=== PATIENT | female | born 1995 | race Caucasian/White ===

== ENCOUNTER 2019-03-05 11:10 | Outpatient (CLI) ==
[2014-04-08 11:30] VITALS: BMI 21.2
== END 2019-03-05 11:11 | disposition home or self-care (01) ==
LOC: LAB 11:10
PROVIDERS: ATTEND Physician Assistant
DX: R53.83 Other fatigue (principal)
CPT/HCPCS: 36415; 80053; 81001; 82306; 82607; 84443; 84702; 85025

== ENCOUNTER 2019-03-17 10:50 | Emergency (ER) ==
[2019-03-17 10:56] VITALS: BP 123/81; TEMP 100.2; BMI 26.6
--- NOTE | 2019-03-17 12:14 | ED.PDOC ---
General ED Provider: Dr. LILLIAN LAND Chief Complaint: Chest Pain Stated Complaint: midsternal chest pain with chest tightness since last night at 1830 hours. Patient stated feels it became difficulty to breath with the chest pain, "like an anxiety attack". Patient recent illness or injury to chest. Time Seen by Physician: 12:15 Mode of Arrival: Walk-In Information Source: Patient Exam Limitations: No limitations Primary Care Provider: DOYLE CHENEY Nursing and Triage Documentation Reviewed and Agree: Yes Does patient meet sepsis criteria?: No If yes, has appropriate treatment been initiated?: No System Inflammatory Response Syndrome: Not Applicable Sepsis Protocol: For patient's 13 years and over: Temp is 96.8 and below OR 101 and greater Pulse >90 BPM Resp >20/minute Acutely Altered Mental Status Are patient's symptoms suggestive of a new infection, such as: -Pneumonia -Skin, Soft Tissue -Endocarditis -UTI -Bone, Joint Infection -Implantable Device -Acute Abdominal Infection -Wound Infection -Meningitis -Blood Stream Catheter Infection -Unknown Review of Systems - Review Of Systems Constitutional: Reports: No symptoms Eyes: Reports: No symptoms Ears, Nose, Mouth, Throat: Reports: No symptoms Respiratory: Reports: No symptoms Cardiac: Reports: No symptoms GI: Reports: No symptoms : Reports: No symptoms Musculoskeletal: Reports: No symptoms Skin: Reports: No symptoms Neurological: Reports: No symptoms, Other (anxioius at times) Endocrine: Reports: No symptoms Hematologic/Lymphatic: Reports: No symptoms All Other Systems: Reviewed and Negative Past Medical History - Past Medical History Previously Healthy: Yes Endocrine: Reports: None Cardiovascular: Reports: None Respiratory: Reports: None Hematological: Reports: None Gastrointestinal: Reports: None Genitourinary: Reports: None Neuro/Psych: Reports: None Musculoskeletal: Reports: None Cancer: Reports: None Last Menstrual Period: none - Surgical History General Surgical History: Reports: None - Family History Family History: Reports: None - Social History Smoking Status: Never smoker Hx Substance Use: No Alcohol Screening: Occasionally - Immunizations Tetanus Shot up to Date: Yes Physical Exam - Physical Exam Appearance: Well-appearing, No pain distress, Well-nourished Ill-appearing: None Pain Distress: None Eyes: JESUS, EOMI, Conjunctiva clear ENT: Ears normal, Nose normal, Oropharynx normal Respiratory: Airway patent, Breath sounds clear, Breath sounds equal, Respirations nonlabored Cardiovascular: RRR, Pulses normal, No rub, No murmur GI/: Soft, Nontender, No masses, Bowel sounds normal, No Organomegaly Musculoskeletal: Normal strength, ROM intact, No edema, No calf tenderness Skin: Warm, Dry, Normal color Neurological: Sensation intact, Motor intact, Reflexes intact, Cranial nerves intact, Alert, Oriented Psychiatric: Affect appropriate, Mood appropriate Critical Care Note - Critical Care Note Total Time (mins): 0 Course - Course Hematology/Chemistry: 03/17/19 12:25 03/17/19 12:25 Orders, Labs, Meds: Lab Review 03/17/19 03/17/19 12:25 12:25 WBC 7.17 RBC 5.15 Hgb 15.1 Hct 44.4 MCV 86.2 MCH 29.3 MCHC 34.0 RDW Coeff of Jeff 12.0 Plt Count 247 Immature Gran % (Auto) 0.3 Neut % (Auto) 62.7 Lymph % (Auto) 29.6 [place] % (Auto) 5.7 Eos % (Auto) 1.3 Baso % (Auto) 0.4 Immature Gran # (Auto) 0.0 Neut # (Auto) 4.5 Lymph # (Auto) 2.1 [place] # (Auto) 0.4 Eos # (Auto) 0.1 Baso # (Auto) 0.0 Sodium 139.1 Potassium 4.05 Chloride 104.6 Carbon Dioxide 23.6 Anion Gap 14.95 BUN 8.5 Creatinine 0.78 Estimated GFR (MDRD) 92.00 BUN/Creatinine Ratio 10.89 Glucose 84.4 Calcium 9.97 Total Bilirubin 0.58 AST 19.0 ALT 17.6 Alkaline Phosphatase 88.2 Troponin I < 0.012 Total Protein 7.56 Albumin 4.73 Globulin 2.83 Albumin/Globulin Ratio 1.67 Orders Category Date Time Status EKG-(ED ONLY) Stat CARDIO 03/17/19 12:16 Completed CBC W/ AUTO DIFF Stat LAB 03/17/19 12:25 Completed CMP [COMPREHENSIVE METABOLIC PANEL] Stat LAB 03/17/19 12:25 Completed TROPONIN I Stat LAB 03/17/19 12:25 Completed Vital Signs: Temp Pulse Resp BP Pulse Ox 03/17/19 10:50 100.2 F H 68 16 123/81 98 EILEEN Risk Score EILEEN Risk Score: Risk Score Odds of by 30D 0 0.1 (0.1-0.2) 1 0.3 (0.2-0.3) 2 0.4 (0.3-0.5) 3 0.7 (0.6-0.9) 4 1.2 (1.0-1.5) 5 2.2 (1.9-2.6) 6 3.0 (2.5-3.6) 7 4.8 (3.8-6.1) Departure - Departure Time of Disposition: 13:10 Disposition: HOME SELF-CARE Discharge Problem: Atypical chest pain, Anxiety Instructions: Anxiety (ED), Panic Attack (ED) Condition: Good Pt referred to PMD for follow-up: Yes (1 wk) IPMP verified?: No Additional Instructions: Take med as directed as needed Follow up PCP for additional evaluation Prescriptions: Hydroxyzine HCl 25 mg PO Q6HR PRN #20 tablet PRN Reason: Anxiety Allergies/Adverse Reactions: Allergies No Known Drug Allergies Adverse Reaction (Verified 03/17/19 11:35) Home Medications: Ambulatory Orders Acetaminophen [Tylenol] 325 mg PO PRN PRN 09/15/14 Ibuprofen 200 mg PO DAILY 09/15/14 Folic Acid/Multivit,Iron,Hole Digger Operator [One Daily For Women Tablet] 1 each PO DAILY Hydroxyzine HCl 25 mg PO Q6HR PRN #20 tablet 03/17/19
== END 2019-03-17 13:25 | disposition home or self-care (01) ==
LOC: ED 10:50
DX: R07.89 Other chest pain (principal); F41.9 Anxiety disorder, unspecified
CPT/HCPCS: 36415; 80053; 84484; 85025; 93005; 93010; 99282